=== PATIENT | female | born 1955 | race Caucasian/White ===

== ENCOUNTER 2017-07-10 15:13 | Emergency (ER) | payer OTHER ==
[~2017-07-10] VITALS: Ht 160 cm; Wt 64.4 kg
[2017-07-10] MEDS ORDERED: LEVAQUIN500 MG (15:23)
== END 2017-07-10 21:33 | disposition home or self-care (01) ==
LOC: ER 15:13
DX: L02.416 Cutaneous abscess of left lower limb (principal)